=== PATIENT | male | born 1960 | race Caucasian/White ===

== ENCOUNTER 2016-06-14 18:07 | Emergency (ER) | payer OTHER, MEDICAID ==
[2016-06-14 18:25] VITALS: BP 122/74; PULSE 92; RESP 16; TEMP 98.2; O2SAT 96
--- NOTE | 2016-06-14 18:35 | EDPHY ---
H & P Stated Complaint: Med Clearance Time Seen by Provider: 06/14/16 18:34 - Personal History Current Tetanus/Diphtheria Vaccine: Unsure Current Tetanus Diphtheria and Acellular Pertussis (TDAP): Unsure Tetanus Vaccine Date: 2011 - Medical/Surgical History Hx Asthma: No Hx Chronic Respiratory Disease: No Hx Diabetes: No Hx Cardiac Disease: No Hx Renal Disease: No Hx Cirrhosis: No Hx Alcoholism: No Hx HIV/AIDS: No Hx Splenectomy or Spleen Trauma: No Other PMH: pmh- arthritis, etoh (sober for 26 years). psh- tonsilectomy - Social History Smoking Status: Never smoked Constitutional: Initial Vital Signs Temperature (C) 36.8 C 06/14/16 18:20 Heart Rate 92 06/14/16 18:20 Respiratory Rate 16 06/14/16 18:20 Blood Pressure 122/74 H 06/14/16 18:20 O2 Sat (%) 96 06/14/16 18:20 O2 Delivery Mode Room Air Allergies/Adverse Reactions: No Known Allergies Allergy (Unverified 02/13/14 10:14) Home Medications: Medication Instructions Recorded HYDROcodone/APAP 10/325 [Hopkins 1 - 2 each PO Q4-6PRN PRN #20 tab 02/17/14 10/325] Ibuprofen [Motrin] 800 mg PO Q8 #20 tab 02/17/14 Medical Marijuana 02/17/14 Medical Decision Making ED Course/Re-evaluation: CHIEF COMPLAINT: Medical clearance for correction HISTORY OF PRESENT ILLNESS: The patient is a 55 y/o male, with a history of alcohol abuse, arriving via [facility] for a medical clearance. He says, "my leg is spasming." He told the officer he has MS, though this is not in our records. PD officer reports he resisted arrest and was tackled to the ground. He began complaining of vague leg spasming en route to correction, so PD brought him to the ED for medical clearance. REVIEW OF SYSTEMS: A 10 point review of systems was performed and is negative with the exception of the elements mentioned in the history of present illness. PHYSICAL EXAM: HR, BP, O2 Sat, RR. Temp noted General Appearance: Alert, well hydrated, appropriate, and non-toxic appearing. Head: Atraumatic without scalp tenderness or obvious injury Eyes: Pupils equal, round, reactive to light and accommodation, EOMI, no trauma , no injection. Ears: Clear bilaterally, no perforation, normal landmarks Nose: Atraumatic, no rhinorrhea, clear. Throat: There is no erythema or exudates, no lesions, normal tonsils, mucus membranes moist. Neck: Supple, nontender, no lymphadenopathy. Respiratory: No retractions, no distress, no wheezes, and no accessory muscle use. Lungs are clear to auscultation bilaterally. Cardiovascular: Regular rate and rhythm, no murmurs, rubs, or gallops. dorsalis pedis pulses intact. Good capillary refill all extremities. Gastrointestinal: Abdomen is soft, nontender, non-distended, no masses, no rebound, no guarding, no peritoneal signs. Musculoskeletal: Normal active ROM of all extremities, atraumatic. Neurological: Alert, appropriate, and interactive. The patient has normal DTRs and non-focal cranial nerves, motor, sensory, and cerebellar exam. Skin: No rashes, good turgor, no nodules on palpation. Past medical history: Arthritis, alcohol abuse Past surgical history: tonsillectomy Family history: noncontributory Social history: In [employer] custody DIFFERENTIAL DIAGNOSIS: The differential diagnosis for the patient's leg spasm included but was not limited to musculoskeletal pain, muscle spasm, secondary gain to avoid correction. MEDICAL DECISION MAKING: This is a 55 y/o male presenting for medical clearance following arrest by [facility]. He complains that the arrest aggravated his multiple sclerosis and caused a leg spasm. We have no record of MS in prior visits. His exam is unremarkable. He will be discharged in good condition to correction with [facility]. He's been referred to a PCP for follow up. Return precautions given. Departure - Departure Disposition: Home, Routine, Self-Care Clinical Impression: Leg muscle spasm Qualifiers: Laterality: unspecified laterality Qualified Code(s): M62.838 - Other muscle spasm Condition: Good Instructions: Muscle Spasm (ED) Additional Instructions: Medially clear for correction. Follow up with your primary care provider upon discharge from correction. Referrals: [facility],. [Clinic] - As per Instructions Report Scribed for: Paul Burgess Report Scribed by: Nikki Miller Date of Report: 06/14/16 Time of Report: 18:35
== END 2016-06-14 19:03 | disposition home or self-care (01) ==
LOC: EDUNIT#
DX: M62.838 Other muscle spasm (principal)

== ENCOUNTER 2017-02-26 13:21 | Emergency (ER) | payer MEDICAID ==
[2017-02-26 13:28] VITALS: O2SAT 96
--- NOTE | 2017-02-26 14:49 | EDPHY ---
H & P Stated Complaint: NEUROPATHY/HURTS ALL OVER Source: Patient Exam Limitations: No limitations - Personal History Current Tetanus/Diphtheria Vaccine: Yes Tetanus Vaccine Date: 2011 - Medical/Surgical History Hx Asthma: No Hx Chronic Respiratory Disease: No Hx Diabetes: No Hx Cardiac Disease: No Hx Renal Disease: No Hx Cirrhosis: No Hx Alcoholism: No Hx HIV/AIDS: No Hx Splenectomy or Spleen Trauma: No Other PMH: pmh- arthritis, etoh (sober for 26 years). 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 He reports that he fell on ice and injured his right knee several years ago. Denies any locking or giving out symptoms. Reports that his discomfort is at his baseline and not any different than normal. He takes baby aspirin daily and smokes marijuana every night to control his symptoms. He went to the orthopedist and retina subspecialist office today for evaluation and he was declined. He believes that he has Medicaid and is question for us to verify that it still valid. He is extremely upset that he does not have a primary care provider and keeps repeating an requesting that we find him one. No history of gout uropathy. Denies redness, warmth, swelling of joints. No fever. No recent trauma or injury. At baseline he uses a walking cane. Modifying Factors: See above Comment: ROS: see HPI Constitutional: No fever, no chills, no weight loss Eyes: No blurred vision Respiratory: No shortness of breath, no cough Cardiovascular: No chest pain Gastrointestinal: No nausea, no vomiting no diarrhea Genitourinary: No dysuria Extremities: No myalgias Neurologic: No weakness, no numbness Skin: No rashes Hematologic: No bruising, no bleeding MEDICAL/SURGICAL/SOCIAL HISTORY: Medical history: Osteoarthritis. Surgical history: Denies Social history: Homeless CONSTITUTIONAL: Well-appearing elderly white male, awake and alert, no obvious distress HEENT: Atraumatic and normocephalic. NECK: supple, no midline tenderness, flexion 45 degrees, extension 45 degrees, right and left lateral flexion 45 degrees. No meningismus. Cardiovascular: Normal S1/S2, regular rate, regular rhythm, without murmur rub or gallop. PULMONARY/CHEST: Symmetrical and nontender. no crepitus. Clear to auscultation bilaterally. Good air movement. No accessory muscle usage. ABDOMEN: Soft, nondistended, nontender, no ecchymosis. PELVIC: no pain with rocking; bilateral hips flexion 125 degrees, extension 30 degrees, with no pain internal rotation and no pain external rotation. BACK: No midline tenderness, no paraspinous spasm, deep tendon reflexes 2/2, no pain with straight leg raise EXTREMITIES: 2/2 pulses, right KNEE: no effusion, no medial and lateral joint line tenderness, full extension to 180, flexion to 120, moderate dose with extension, no pain with varus and valgus exam. No pain with anterior drawer or posterior drawer test. no deformities, no clubbing, no cyanosis or edema. NEUROLOGICAL: no focal neuro deficits. GCS 15. Light touch sensation intact. Pressure speech pattern that is chronic. SKIN: Warm and dry, no erythema. no rash. Good capillary refill. (Giulia Blake) Constitutional: Initial Vital Signs Temperature (C) 36.4 C 02/26/17 13:25 Heart Rate 92 02/26/17 13:25 Respiratory Rate 17 02/26/17 13:25 Blood Pressure 95/63 L 02/26/17 13:25 O2 Sat (%) 96 02/26/17 13:25 O2 Delivery Mode Room Air Allergies/Adverse Reactions: No Known Allergies Allergy (Verified 02/26/17 13:24) Home Medications: Medication Instructions Recorded Medical Marijuana 02/17/14 Medical Decision Making ED Course/Re-evaluation: She has declined any imaging or laboratory workup which I feel is reasonable as he is here to obtain primary care provider. Vital signs reviewed and stable. Afebrile and no systemic signs. Patient declines any medications. ER case repairer consult. Patient [facility] but he adamantly declined. He prefers for a "normal primary care provider." This patient was seen under the supervision of my secondary supervising physician. I evaluated care for this patient independently. Discussed this patient with Dr. Mora who did not see the patient. Patient's presentation, labs/imaging, treatment and plan of care were reviewed with secondary supervising physician. (Giulia Blake) Differential Diagnosis: Differential diagnosis includes but not limited to osteoarthritis, rheumatoid arthritis, internal derangement, nerve injury, tendon injury. (Giulia Blake) Other Provider: The patient was evaluated and managed by the Physician Nutrition Program Instructor/ Nurse Practitioner. My co-signature indicates that I have reviewed this chart and I agree with the findings and plan of care as documented. I am the secondary supervising physician. (Alma Delia Mora) Departure - Departure Disposition: Home, Routine, Self-Care Clinical Impression: Chronic pain of right knee Osteoarthritis Qualifiers: Osteoarthritis location: unspecified site Osteoarthritis type: unspecified Qualified Code(s): M19.90 - Unspecified osteoarthritis, unspecified site Chronic pain Qualifiers: Chronic pain type: other chronic pain Qualified Code(s): G89.29 - Other chronic pain Condition: Good Instructions: Osteoarthritis (ED) Referrals: Anh Kapoor MD [Medical Doctor] - As per Instructions
[2017-02-26 15:35] VITALS: BP 101/79; PULSE 77; RESP 16; TEMP 98.6
--- NOTE | 2017-02-26 17:21 | ASMTCMCOM ---
CM Note CM Note Notes: Spoke with patient about him finding a PCP. Patient has Medicaid and he asked that we verify his Medicaid and provide his Medicaid #. Spoke with Jovita at [facility] and was able to offer a new patient appointment at [facility] on Saturday03/01/17 at 2pm but patient states he doesn't want to go to [facility]. Patient has never been to [facility]. Patient has lived in the [place] area on and off since 2013. Patient provided [facility] PCP list and [facility] information. Patient also provided [facility] information for pain management. Patient aware he can always make an appointment with [facility]. CM available for further assistance. Date Signed: 02/26/2017 05:20 PM Electronically Signed By:Mariana Alcala RN
--- NOTE | 2017-02-26 17:32 | ASDISCHSUM ---
Discharge Information Plan Status:Homeless/Skilled Nursing Medically Cleared to Leave: Discharge Date:02/26/2017 03:40 PM CM D/C Disposition:Streets (Homeless) ADT D/C Disposition:Home, Routine, Self-Care Projected Discharge Date:02/26/2017 03:40 PM Transportation at D/C:Self Discharge Delay Reason: Follow-Up Date:02/26/2017 03:40 PM Discharge Slot: Final Diagnosis: Placement Information Patient Contact Information Contact Name:DORISLARY Relationship: Address: Home Phone: Work Phone: City: Alternate Phone: State/Zip Code: Email: Financial Information Financial Class: Primary Plan Desc:[employer]ICA[employer] HE[employer] FIRST RADIOLOGY SCHEDULER Primary Plan Number:[id number] Secondary Plan Desc: Secondary Plan Number: Assessment Information LACE LACE Acuity / Level of Care Answers: No. Emergency dept visits in Answers: 1 last 6 months Score: 1 Date Signed: 02/26/2017 04:41 PM Electronically Signed By:Mariana Alcala RN [facility] CM Progress Note CM Note CM Note Notes: Spoke with patient about him finding a PCP. Patient has Medicaid and he asked that we verify his Medicaid and provide his Medicaid #. Spoke with Jovita at [facility] and was able to offer a new patient appointment at [facility] on Saturday03/01/17 at 2pm but patient states he doesn't want to go to [facility]. Patient has never been to [facility]. Patient has lived in the [place] area on and off since 2013. Patient provided [facility] PCP list and [facility] information. Patient also provided [facility] information for pain management. Patient aware he can always make an appointment with [facility]. CM available for further assistance. Date Signed: 02/26/2017 05:20 PM Electronically Signed By:Mariana Alcala RN Intervention Information
== END 2017-02-26 15:40 | disposition home or self-care (01) ==
DX: M25.561 Pain in right knee (principal); M19.90 Unspecified osteoarthritis, unspecified site; G89.29 Other chronic pain